=== PATIENT | female | born 1970 | race Caucasian/White ===

== ENCOUNTER 2017-04-13 08:19 | Emergency (ER) | payer OTHER ==
[~2017-04-13 08:19] MED LIST: HYDROCHLOROTHIA25 MG PO; PROVENTIL HFA IN; QVAR40 MCG IN
--- NOTE | 2017-04-13 09:33 | DIAGNOSTIC IMAGING REPORT ---
PROCEDURE: XR CHEST 2 VIEW INDICATION: SHORTNESS OF BREATH TECHNIQUE: PA and lateral views. COMPARISON: Chest 09/01/2015 FINDINGS: Lungs are clear. Heart and mediastinum are normal. Thorax is normal. IMPRESSION: 1. Negative chest.
--- NOTE | 2017-04-13 11:34 | ED ORDER SUMMARY ---
..... Patient: ASIA FUENTES OrderSheet Formerly [facility] VisitID: [id number] [place] [address] 46y, F Registration Date/Time: 04/13/2017 ORDER SHEET Weight: 79.3 kg (stated) Allergies: Aspirin, Codeine GENERAL ORDERS: Chest 2V Urgent (08:04/13/2017 PHutchinson DO) (Ack 8:54 OHernandez) (10:15 Sangita R.N.) Wildlife [employer] Research Ecologist (Continuous) (08:04/13/2017 PHutchinson DO) (8:40 Sangita R.N.) UA-Culture if indicated Urgent (:04/13/2017 PHutchinson DO) (Ack 8:53 OHernandez) (9:12 Sangita R.N.) Cardiac Panel Stat (:04/13/2017 PHutchinson DO) (Ack 8:53 OHernandez) (9:12 Sangita R.N.) BNP Urgent (08:04/13/2017 PHutchinson DO) (Ack 8:53 OHernandez) (9:12 Sangita R.N.) D-Dimer Urgent (08:04/13/2017 PHutchinson DO) (Ack 8:53 OHernandez) (9:12 Sangita R.N.) Amylase Urgent (08:04/13/2017 PHutchinson DO) (Ack 8:53 OHernandez) (9:12 Sangita R.N.) TSH Urgent (08:04/13/2017 PHutchinson DO) (Ack 8:53 OHernandez) (9:12 Sangita R.N.) Ethyl Alcohol Urgent (08:04/13/2017 PHutchinson DO) (Ack 8:54 OHernandez) (9:12 Sangita R.N.) Pulse oximeter (08:04/13/2017 PHutchinson DO) (8:40 Sangita R.N.) EKG - ER Stat (08:04/13/2017 PHutchinson DO) (8:41 Sangita R.N.) Vitals (08:04/13/2017 [facility]) (8:41 Sangita R.N.) MEDICATION ORDERS: IV FLUIDS: IV NS : initial bolus 1000 mL (1000 mL/hr), then 250 mL/hr for X4 (NOW) (08:40 04/13/2017 [facility]) (Ack 8:41 Sangita R.N.) (9:12 Sangita R.N.) Ativan IV 1 mg (HIGH ALERT MEDICATION, NOW) (08:04/13/2017 [facility]) (Ack 8:41 Sangita R.N.) (9:12 Sangita R.N.) ORDER SHEET NOTES: [Electronically signed by Rose Marie Haas R.N. (12:25 04/13/2017)] [Electronically signed by Jacqueline Caraballo MD (04:41 04/15/2017)] [Electronically locked/signed by Rose Marie Haas R.N. (12:04/13/2017)]
--- NOTE | 2017-04-13 11:34 | ED CLINICAL REPORT ---
Clinical Report - Physicians/Mid Levels [facility] [address] [place] [address] 04/13/2017 8:19 Patient: ASIA FUENTES Time Seen: 08:35. Arrived- By private vehicle. Historian- patient. HISTORY OF PRESENT ILLNESS Chief Complaint: NUMBNESS and DIZZINESS Anxiety. BLOOD PRESSURE CHECK and ELEVATED. At its maximum, severity described as severe. When seen in the E.D., severity described as severe. Modifying factors- worsened by walking. Relieved by rest. This started today and is still present. It was gradual in onset and has been waxing/waning. No loss of appetite, weight loss, headache, visual disturbance or fatigue. No muscle aches or weakness. Denies sleep problem. No decreased urine output. Similar symptoms previously: None. Recent medical care: Not recently seen/assessed. REVIEW OF SYSTEMS No fever, sore throat, sinus drainage, nasal congestion or cough. No chest pain, abdominal pain, nausea, vomiting or diarrhea. No black stools, bloody stools, chills, difficulty with urination or abnormal bleeding. No skin rash, back pain, calf pain, headache or blackouts. No double vision. The patient has had difficulty breathing ("a little bit of shortness of breath" yesterday while hiking). No difficulty with ambulation. All systems otherwise negative, except as recorded above. PAST HISTORY Primary physician (Alexys). Hypertension. Asthma. Thyroid disease. Endometriosis. Environmental allergies. Surgeries: Appendectomy. Had hysterectomy. Medications: Zyrtec. Glycine Oral. OTC energy/metabolism. Thyroid Hormone. HCTZ. Allergies: Aspirin.(hives) Codeine.(itching). SOCIAL HISTORY Former smoker. Regular alcohol use; consumes liquor daily. History of drug use: marijuana. ADDITIONAL NOTES The nursing notes have been reviewed. PHYSICAL EXAM Vital Signs: 04/13/2017 08:29 Temp: 98 F. 04/13/2017 08:22 BP: 179/109. HR: 108. RR: 15. O2 saturation: 100%. Pain level now: 0/10. Appearance: Alert. Anxious. Patient in moderate distress. (hyperventilating, crying on my exam). Distress appears due to anxiety. Eyes: Eyes normal inspection. No scleral icterus or pale conjunctivae. ENT: Pharynx normal. No pharyngeal erythema or tonsillar exudate. The mucous membranes are not dry. Neck: Normal inspection. Neck supple. No meningeal signs, JVD or carotid bruit. CVS: Tachycardia. Heart sounds normal. Pulses normal. Respiratory: No respiratory distress. Breath sounds normal. No rales, rhonchi or wheezes. Abdomen: No visible injury. Soft and nontender. Back: Normal inspection. Skin: Skin warm and dry. Normal skin color. No rash. Normal skin turgor. Extremities: Extremities exhibit normal ROM. No calf tenderness. No lower extremity edema. Neuro: Oriented X 3. No motor deficit. Sensory deficit present. (bilateral hands). Altered sensation to light touch. LABS, X-RAYS, AND EKG EKG: EKG time: (08:39). Regular narrow-complex tachycardia (ventricular rate 105). Sinus tachycardia. Normal ALIZE. Normal QRS complex. Normal axis. Non-specific ST segment / T wave abnormalities. EKG unchanged when compared with prior EKG. (similar to [id number]). The study has been interpreted contemporaneously by me. The EKG appears to be a good tracing. Rhythm Strip #1: Sinus tachycardia. Regular rhythm. Narrow QRS complexes. No ectopy. Chest X-ray: No acute disease. Normal lung markings present. Normal heart size. Mediastinum normal. Great vessels normal. No infiltrate. Views: PA and lateral. Technique: good. The X-rays were interpreted contemporaneously by me. Laboratory Tests: UA-Culture if indicated: (DAYANA: 04/13/2017 08:55) ( MsgRcvd 04/13/2017 09:20) Final results Test Result Flag Units (Reference) URINE COLOR YELLOW URINE APPEARANCE CLEAR URINE GLUCOSE NEGATIVE (NEGATIVE) URINE BILIRUBIN NEGATIVE (NEGATIVE) URINE KETONE TRACE (NEGATIVE) URINE SPECIFIC GRAVITY 1.015 (1.010-1.030) URINE PH 5.5 (5.0-8.0) URINE PROTEIN NEGATIVE (NEGATIVE) URINE UROBILINOGEN 0.2 EU/dL (0.2-1.0) URINE NITRITE NEGATIVE (NEGATIVE) URINE BLOOD TRACE-INTACT (NEGATIVE) URINE LEUK ESTERASE NEGATIVE (NEGATIVE) URINE RBC 0-1 rbc/hpf (0-1) URINE WBC 1-3 wbc/hpf (0-1) URINE EPITHELIAL CELLS 10-15 EPI/hpf (0-5) URINE BACTERIA FEW (1+) (NONE SEEN) URINE COMMENT CULT NOT INDICATED URINE CULTURES ARE SET-UP BASED ON THE FOLLOWING CRITERIA:POSITIVE NITRITEPOSITIVE LEUKOCYTE ESTERASEGREATER THAN 10 WHITE BLOOD CELLSMODERATE (2+) OR GREATER BACTERIA CBC w Diff: (DAYANA: 04/13/2017 08:30) ( [facility] 04/13/2017 08:48) Final results Test Result Flag Units (Reference) WHITE BLOOD COUNT 7.5 K/uL (4.5-11.5) RED BLOOD COUNT 5.10 M/uL (4.00-5.20) HEMOGLOBIN 16.3 H gm/dL (12.0-16.0) HEMATOCRIT 48.1 H % (36.0-46.0) MEAN CELL VOLUME 94 fL (80-100) MEAN CORPUSCULAR HGB 32 pg (26-34) MEAN CORPUSCULAR HGB CONC 34 g/dL (31-37) RED CELL DISTRIBUTION WIDTH 12.1 % (11.6-14.8) PLATELET COUNT 165 K/uL (150-400) LYMPH % 43.6 H % (25-40) MONO % 8.5 % (3-14) GRANULOCYTE % 47.9 L % (53-90) [id number]: (DAYANA: 04/13/2017 08:30) ( [facility] 04/13/2017 09:07) Final results Test Result Flag Units (Reference) D-DIMER QUANTITATIVE < 0.27 L ug/mLFEU (0.27-0.52) The primary value of this quantitative assay relates toits negative predictive value (i.e. exclusion) of pulmonaryembolism/deep vein thrombosis/DIC.Elevated levels of d-dimer may also occur with:, age, cancer, inflammation, liver disease,post-op, infection, hematoma, coronary disease, peripheralarteriopathy, bleeding disorders and thrombolytic treatment.Results should be correlated with other clinical andradiological data.Testing Methodology: Latex Immunoassay BNP: (DAYANA: 04/13/2017 08:30) ( MsgRcvd 04/13/2017 09:10) Final results Test Result Flag Units (Reference) B-TYPE NATRIURETIC PEPTIDE 10.8 pg/ml (5-100) CHEM 13 PANEL: (DAYANA: 04/13/2017 08:30) ( MsgRcvd 04/13/2017 09:20) Final results Test Result Flag Units (Reference) GLUCOSE 129 H mg/dL (70-110) BUN 17 mg/dL (7-18) CREATININE 1.0 mg/dL (0.6-1.3) Estimated GFR >60 mL/min Estimated GFR- >60 mL/min Note: Persistent reduction over 3 months in eGFR<60 mL/min/1.73 m2 defines CKD. Patients with eGFR values>=60 mL/min/1.73 m2 may also have CKD if evidence ofpersistent proteinuria. Additional information may be foundat [email or web address]. SODIUM 140 mmol/L (136-145) POTASSIUM 2.9 *L mmol/L (3.5-5.1) CRITICAL RESULTS [facility]EDCalled to [facility] 04/13/17 0919Were 2 patient identifiers used? YWas the result read back? Y CHLORIDE 101 mmol/L (98-107) CARBON DIOXIDE 22 mmol/L (21-32) CALCIUM 9.3 mg/dL (8.5-10.1) TOTAL PROTEIN 7.9 g/dL (6.4-8.2) ALBUMIN 4.3 g/dL (3.3-5.0) BILIRUBIN, TOTAL 0.8 mg/dL (0.0-1.0) ALKALINE PHOSPHATASE 86 U/L (46-116) AST (SGOT) 65 H U/L (15-37) ALT (SGPT) 124 H U/L (12-78) MAGNESIUM 2.1 mg/dL (1.8-2.4) AMYLASE 32 U/L (25-115) CPK 242 U/L (24-260) TROPONIN I <0.05 L ng/mL (0.00-1.5) TROPONIN REFERENCE RANGE:<0.1 NEGATIVE0.1-1.5 INDETERMINANT>1.5 POSITIVE ETHYL ALCOHOL < 3.0 L mg/dL (3-10) THYROID STIMULATING HORMONE 3.939 H uIU/mL (0.34-3.74) . Pulse Oximetry: 04/13/2017 08:22 O2 saturation: 100%. (FIO2 - room air). Interpretation: normal. PROGRESS AND PROCEDURES Course of Care: Ativan 1mg IVP given. Ilya note: patient was signed out to me at change of shift pending remainder of work- up and symptomatic relief. Patient's workup was unremarkable. On reevaluation, patient was found to be feeling much much better, and I did advise her that no emergent condition had been identified. Patient, mother and father counseled in person regarding the patient's condition, test results, diagnosis and need for follow-up. Concerns were addressed. Old ED records reviewed. Disposition: Discharged. Condition: stable and improved. CLINICAL IMPRESSION Paresthesia Anxiety reaction with hyperventilation. Essential hypertension. INSTRUCTIONS Warnings: GENERAL WARNINGS: Return or contact your physician immediately if your condition worsens or changes unexpectedly, if not improving as expected, or if other problems arise. Your Current Medications: CONTINUE TAKING THE FOLLOWING MEDICATIONS: Glycine Oral. HCTZ*. OTC energy/metabolism*. Thyroid Hormone*. Zyrtec*. Understanding of the discharge instructions verbalized by patient and family. Follow-up with: Debbie Amado PA-C, [facility], , [facility], [address] [place], [place] [phone] Follow up. Call for the next available appointment. Reason for referral: Follow up ER visit for high blood pressure and anxiety. (Electronically signed by Jacqueline Caraballo MD 04/15/2017 4:41)
--- NOTE | 2017-04-13 11:34 | ED CLINICAL REPORT ---
Clinical Report - Physicians/Mid Levels [facility] [address] [place] [place] [address] 04/13/2017 8:19 Patient: ASIA FUENTES Time Seen: 08:35. Arrived- By private vehicle. Historian- patient. HISTORY OF PRESENT ILLNESS Chief Complaint: NUMBNESS and DIZZINESS Anxiety. BLOOD PRESSURE CHECK and ELEVATED. At its maximum, severity described as severe. When seen in the E.D., severity described as severe. Modifying factors- worsened by walking. Relieved by rest. This started today and is still present. It was gradual in onset and has been waxing/waning. No loss of appetite, weight loss, headache, visual disturbance or fatigue. No muscle aches or weakness. Denies sleep problem. No decreased urine output. Similar symptoms previously: None. Recent medical care: Not recently seen/assessed. REVIEW OF SYSTEMS No fever, sore throat, sinus drainage, nasal congestion or cough. No chest pain, abdominal pain, nausea, vomiting or diarrhea. No black stools, bloody stools, chills, difficulty with urination or abnormal bleeding. No skin rash, back pain, calf pain, headache or blackouts. No double vision. The patient has had difficulty breathing ("a little bit of shortness of breath" yesterday while hiking). No difficulty with ambulation. All systems otherwise negative, except as recorded above. PAST HISTORY Primary physician (Alexys). Hypertension. Asthma. Thyroid disease. Endometriosis. Environmental allergies. Surgeries: Appendectomy. Had hysterectomy. Medications: Zyrtec. Glycine Oral. OTC energy/metabolism. Thyroid Hormone. HCTZ. Allergies: Aspirin.(hives) Codeine.(itching). SOCIAL HISTORY Former smoker. Regular alcohol use; consumes liquor daily. History of drug use: marijuana. ADDITIONAL NOTES The nursing notes have been reviewed. PHYSICAL EXAM Vital Signs: 04/13/2017 08:29 Temp: 98 F. 04/13/2017 08:22 BP: 179/109. HR: 108. RR: 15. O2 saturation: 100%. Pain level now: 0/10. Appearance: Alert. Anxious. Patient in moderate distress. (hyperventilating, crying on my exam). Distress appears due to anxiety. Eyes: Eyes normal inspection. No scleral icterus or pale conjunctivae. ENT: Pharynx normal. No pharyngeal erythema or tonsillar exudate. The mucous membranes are not dry. Neck: Normal inspection. Neck supple. No meningeal signs, JVD or carotid bruit. CVS: Tachycardia. Heart sounds normal. Pulses normal. Respiratory: No respiratory distress. Breath sounds normal. No rales, rhonchi or wheezes. Abdomen: No visible injury. Soft and nontender. Back: Normal inspection. Skin: Skin warm and dry. Normal skin color. No rash. Normal skin turgor. Extremities: Extremities exhibit normal ROM. No calf tenderness. No lower extremity edema. Neuro: Oriented X 3. No motor deficit. Sensory deficit present. (bilateral hands). Altered sensation to light touch. LABS, X-RAYS, AND EKG EKG: EKG time: (08:39). Regular narrow-complex tachycardia (ventricular rate 105). Sinus tachycardia. Normal ALIZE. Normal QRS complex. Normal axis. Non-specific ST segment / T wave abnormalities. EKG unchanged when compared with prior EKG. (similar to [id number]). The study has been interpreted contemporaneously by me. The EKG appears to be a good tracing. Rhythm Strip #1: Sinus tachycardia. Regular rhythm. Narrow QRS complexes. No ectopy. Chest X-ray: No acute disease. Normal lung markings present. Normal heart size. Mediastinum normal. Great vessels normal. No infiltrate. Views: PA and lateral. Technique: good. The X-rays were interpreted contemporaneously by me. Laboratory Tests: UA-Culture if indicated: (DAYANA: 04/13/2017 08:55) ( MsgRcvd 04/13/2017 09:20) Final results Test Result Flag Units (Reference) URINE COLOR YELLOW URINE APPEARANCE CLEAR URINE GLUCOSE NEGATIVE (NEGATIVE) URINE BILIRUBIN NEGATIVE (NEGATIVE) URINE KETONE TRACE (NEGATIVE) URINE SPECIFIC GRAVITY 1.015 (1.010-1.030) URINE PH 5.5 (5.0-8.0) URINE PROTEIN NEGATIVE (NEGATIVE) URINE UROBILINOGEN 0.2 EU/dL (0.2-1.0) URINE NITRITE NEGATIVE (NEGATIVE) URINE BLOOD TRACE-INTACT (NEGATIVE) URINE LEUK ESTERASE NEGATIVE (NEGATIVE) URINE RBC 0-1 rbc/hpf (0-1) URINE WBC 1-3 wbc/hpf (0-1) URINE EPITHELIAL CELLS 10-15 EPI/hpf (0-5) URINE BACTERIA FEW (1+) (NONE SEEN) URINE COMMENT CULT NOT INDICATED URINE CULTURES ARE SET-UP BASED ON THE FOLLOWING CRITERIA:POSITIVE NITRITEPOSITIVE LEUKOCYTE ESTERASEGREATER THAN 10 WHITE BLOOD CELLSMODERATE (2+) OR GREATER BACTERIA CBC w Diff: (DAYANA: 04/13/2017 08:30) ( [facility] 04/13/2017 08:48) Final results Test Result Flag Units (Reference) WHITE BLOOD COUNT 7.5 K/uL (4.5-11.5) RED BLOOD COUNT 5.10 M/uL (4.00-5.20) HEMOGLOBIN 16.3 H gm/dL (12.0-16.0) HEMATOCRIT 48.1 H % (36.0-46.0) MEAN CELL VOLUME 94 fL (80-100) MEAN CORPUSCULAR HGB 32 pg (26-34) MEAN CORPUSCULAR HGB CONC 34 g/dL (31-37) RED CELL DISTRIBUTION WIDTH 12.1 % (11.6-14.8) PLATELET COUNT 165 K/uL (150-400) LYMPH % 43.6 H % (25-40) MONO % 8.5 % (3-14) GRANULOCYTE % 47.9 L % (53-90) [id number]: (DAYANA: 04/13/2017 08:30) ( [facility] 04/13/2017 09:07) Final results Test Result Flag Units (Reference) D-DIMER QUANTITATIVE < 0.27 L ug/mLFEU (0.27-0.52) The primary value of this quantitative assay relates toits negative predictive value (i.e. exclusion) of pulmonaryembolism/deep vein thrombosis/DIC.Elevated levels of d-dimer may also occur with:, age, cancer, inflammation, liver disease,post-op, infection, hematoma, coronary disease, peripheralarteriopathy, bleeding disorders and thrombolytic treatment.Results should be correlated with other clinical andradiological data.Testing Methodology: Latex Immunoassay BNP: (DAYANA: 04/13/2017 08:30) ( MsgRcvd 04/13/2017 09:10) Final results Test Result Flag Units (Reference) B-TYPE NATRIURETIC PEPTIDE 10.8 pg/ml (5-100) CHEM 13 PANEL: (DAYANA: 04/13/2017 08:30) ( MsgRcvd 04/13/2017 09:20) Final results Test Result Flag Units (Reference) GLUCOSE 129 H mg/dL (70-110) BUN 17 mg/dL (7-18) CREATININE 1.0 mg/dL (0.6-1.3) Estimated GFR >60 mL/min Estimated GFR- >60 mL/min Note: Persistent reduction over 3 months in eGFR<60 mL/min/1.73 m2 defines CKD. Patients with eGFR values>=60 mL/min/1.73 m2 may also have CKD if evidence ofpersistent proteinuria. Additional information may be foundat [email or web address]. SODIUM 140 mmol/L (136-145) POTASSIUM 2.9 *L mmol/L (3.5-5.1) CRITICAL RESULTS CALLEDCalled to [facility] 04/13/17 0919Were 2 patient identifiers used? YWas the result read back? Y CHLORIDE 101 mmol/L (98-107) CARBON DIOXIDE 22 mmol/L (21-32) CALCIUM 9.3 mg/dL (8.5-10.1) TOTAL PROTEIN 7.9 g/dL (6.4-8.2) ALBUMIN 4.3 g/dL (3.3-5.0) BILIRUBIN, TOTAL 0.8 mg/dL (0.0-1.0) ALKALINE PHOSPHATASE 86 U/L (46-116) AST (SGOT) 65 H U/L (15-37) ALT (SGPT) 124 H U/L (12-78) MAGNESIUM 2.1 mg/dL (1.8-2.4) AMYLASE 32 U/L (25-115) CPK 242 U/L (24-260) TROPONIN I <0.05 L ng/mL (0.00-1.5) TROPONIN REFERENCE RANGE:<0.1 NEGATIVE0.1-1.5 INDETERMINANT>1.5 POSITIVE ETHYL ALCOHOL < 3.0 L mg/dL (3-10) THYROID STIMULATING HORMONE 3.939 H uIU/mL (0.34-3.74) . Pulse Oximetry: 04/13/2017 08:22 O2 saturation: 100%. (FIO2 - room air). Interpretation: normal. PROGRESS AND PROCEDURES Course of Care: Ativan 1mg IVP given. Ilya note: patient was signed out to me at change of shift pending remainder of work- up and symptomatic relief. Patient's workup was unremarkable. On reevaluation, patient was found to be feeling much much better, and I did advise her that no emergent condition had been identified. Patient, mother and father counseled in person regarding the patient's condition, test results, diagnosis and need for follow-up. Concerns were addressed. Old ED records reviewed. Disposition: Discharged. Condition: stable and improved. CLINICAL IMPRESSION Paresthesia Anxiety reaction with hyperventilation. Essential hypertension. INSTRUCTIONS Warnings: GENERAL WARNINGS: Return or contact your physician immediately if your condition worsens or changes unexpectedly, if not improving as expected, or if other problems arise. Your Current Medications: CONTINUE TAKING THE FOLLOWING MEDICATIONS: Glycine Oral. HCTZ*. OTC energy/metabolism*. Thyroid Hormone*. Zyrtec*. Understanding of the discharge instructions verbalized by patient and family. Follow-up with: Debbie Amado PA-C, [facility], , [facility], [address] [place], [place] [phone] Follow up. Call for the next available appointment. Reason for referral: Follow up ER visit for high blood pressure and anxiety. (Electronically signed by Jacqueline Caraballo MD 04/15/2017 4:41)
--- NOTE | 2017-04-13 11:34 | ED NURSING NOTES ---
Clinical Report - Nurses [facility] [address] [place] [address] 04/13/2017 8:19 [facility]: [id number] TRI[facility] Triage time 08:22. Acuity: LEVEL 3. Chief Complaint: BLOOD PRESSURE CHECK ("lightheaded). Alert. ASHWIN COMA SCORE: Ashwin Coma Scale: 15- eyes open spontaneously (4); best verbal response- oriented x 4 (5); best motor response- obeys commands (6). --08:29 Rose Marie Haas R.N. 08:22 04/13/17. BP: 179/109. HR: 108. RR: 15. O2 saturation: 100%. Pain level now: 0/10. --08:29 Rose Marie Haas R.N. 08:29 04/13/17. Temp: 98 F. --08:30 Rose Marie Haas R.N. Weight: 79.3 kg stated. Height/Length: 66 inches Per Patient. BMI: 28.2. --08:26 Rose Marie Haas R.N. Medications HCTZ. --08:23 Rose Marie Haas R.N. Thyroid Hormone. --08:23 Rose Marie Haas R.N. OTC energy/metabolism. --08:23 Rose Marie Haas R.N. Glycine Oral. --08:24 Rose Marie Haas R.N. Zyrtec. --08:24 Rose Marie Haas R.N. Medication/allergy information source: the patient. --08:29 Rose Marie Haas R.N. Allergies Aspirin.(hives) Codeine.(itching) --08:24 Rose Marie Haas R.N. History Arrived by private vehicle. Historian: patient. Unaccompanied. Primary physician (Alexys). This started today. SOCIAL HX: Former smoker. Regular alcohol use; consumes liquor daily. History of drug use: marijuana. FALL RISK ASSESSMENT: Fall risk assessment completed. No fall risk identified. FUNCTIONAL ASSESSMENT: Functional assessment: no impairments noted. LEARNING NEEDS ASSESSMENT: The learning needs assessment revealed no barriers. --08:29 Rose Marie Haas R.N. ( "a little bit of shortness of breath" yesterday while hiking). --08:30 Rose Marie Haas R.N. PROBLEMS: Thyroid Disease. Asthma. --08:26 Rose Marie Haas R.N. ADDITIONAL SURGERIES: Appendectomy. Hysterectomy. --08:26 Rose Marie Haas R.N. Assessment GENERAL / NEURO / PSYCH: The patient is awake and alert, is oriented and cooperative and appears anxious. She has poor eye contact. RESPIRATORY: Respirations not labored. CVS: Cardiac rhythm: sinus tachycardia. SKIN: Skin is warm and dry. --08:29 Rose Marie Haas R.N. Interventions ID and allergy band on patient. To treatment room. --08:29 Rose Marie Haas R.N. PHYSICAL ASSESSMENT 08:31 04/13/17. To room via wheelchair. Patient gowned. GENERAL / NEURO / PSYCH: The patient is awake and alert, is oriented and cooperative and appears anxious. She has poor eye contact. RESPIRATORY: Respirations not labored. CVS: Cardiac rhythm: sinus tachycardia. SKIN: Skin is warm and dry. --08:31 Rose Marie Haas R.N. NURSING PROGRESS NOTES 08:32 04/13/2017 Site #1 started via IV in the right antecubital space with an 20g angiocath, with aseptic technique and good blood return; one attempt. Blood drawn: rainbow set. Labeled in the presence of the patient and sent to the lab. Saline lock flushed with 10 mL saline (by Talon CHANDLER). --08:32 Rose Marie Haas R.N. 08:32 04/13/17. cardiac monitor technician, pulse oximeter and NIBP monitor placed on patient. Patient gowned. Head of bed elevated. Reassurance given. Call light placed in reach. Side rails up x 1. Bed placed in lowest position. Brakes of bed on. --08:32 Rose Marie Haas R.N. EKG time: (0839). EKG was ordered, performed by a tenzin and shown to the ED physician. --08:42 Uriel Aguayo, Tech1 08:30 04/13/17. BP: 152/102. --08:53 Rose Marie Haas R.N. 09:02 04/13/2017 Started bag #1 1000 mL IV Fluids IV NS (Saline); at 1000 mL/hr over 1 hour(s) via site #1 via IV pump. --09:12 Rose Marie Haas R.N. 09:02 04/13/2017 Ativan (LORazepam) IVP 1 mg given over 2 minute(s) via site #1. Allergies verified, confirmed 5 rights and sedative warning given to the patient. IV patency established. IV site checked: no pain, redness, or swelling. IV flushed thoroughly pre- and post-medication administration. IVP given by RN. --09:12 Rose Marie Haas R.N. 09:16 04/13/17. BP: 160/85. HR: 96. RR: 15. O2 saturation: 95%. Pain level now: 0/10. --09:17 Rose Marie Haas R.N. 09:17 04/13/17. Cardiac rhythm: sinus rhythm. Reassessment after fluids administered, procedure and medication administered. Overall patient status is improved- she states feels better. RESPIRATORY: No respiratory distress. SKIN: Skin is warm but not dry. --09:17 Rose Marie Haas R.N. 09:20 04/13/17. Critical value relayed to ED by lab. Critical value received by RN. K: 2.9. ED physician notifed of critical value. --09:20 Rose Marie Haas R.N. 10:00 04/13/17. BP: 147/86. HR: 87. RR: 19. O2 saturation: 96%. --10:05 Rose Marie Haas R.N. 10:05 04/13/17. Cardiac rhythm: sinus rhythm. The patient is resting quietly. Overall patient status is improved- she states feels better. RESPIRATORY: No respiratory distress. SKIN: Skin is warm and dry. --10:05 Rose Marie Haas R.N. 10:10 04/13/2017 IV Fluids IV NS Bag Change: bag #1 infused. Total amount infused: 1000. STARTED bag #2 (1000 mL) at 250 mL/hr via IV pump. --10:15 Rose Marie Haas R.N. 12:00 04/13/2017 IV Fluids IV NS Discontinued: bag #2 STOPPED upon discharge. Total amount infused: 750 mL. --12:13 Rose Marie Haas R.N. 11:00. Cardiac rhythm: sinus rhythm. Reassessment after fluids administered, procedure and medication administered. She is calm and resting quietly. Overall patient status is improved- she states feels better. RESPIRATORY: No respiratory distress. SKIN: Skin is warm and dry. --12:14 Rose Marie Haas R.N. 12:00. The patient is calm and resting quietly. Overall patient status is improved- she states feels better (hands no longer numb, verbalizes feeling better). RESPIRATORY: No respiratory distress. SKIN: Skin is warm and dry. --12:15 Rose Marie Haas R.N. 12:00 04/13/17. BP: 149/83. HR: 82. RR: 17. O2 saturation: 99% on room air. Pain level now: 0/10. --12:23 Rose Marie Haas R.N. DISPOSITION / DISCHARGE 12:00 04/13/2017 Site #1 removed upon discharge. Catheter intact. Bandaid applied. --12:10 Rose Marie Haas R.N. Departure time: 1200. Condition at departure: improved and stable. No learning barriers present. Discharge instructions provided and reviewed with the patient. Patient verbalized understanding. Written instructions provided in Greenlandic. The patient was discharged home and accompanied by family. She left the Emergency Department ambulatory and via private vehicle. FALL RISK ASSESSMENT: Fall risk assessment completed. No fall risk identified. --12:11 Rose Marie Haas R.N. 12:06 04/13/17. BP: 149/75. HR: 88. RR: 18. O2 saturation: 100% on room air. Pain level now: 0/10. --12:11 Rose Marie Haas R.N. Locked/Released at 04/13/2017 12:25 by Rose Marie Haas R.N.
--- NOTE | 2017-04-13 11:34 | ED ORDER SUMMARY ---
..... Patient: ASIA FUENTES OrderSheet [facility] VisitID: [id number] [place] [address] 46y, F Registration Date/Time: 04/13/2017 ORDER SHEET Weight: 79.3 kg (stated) Allergies: Aspirin, Codeine GENERAL ORDERS: Chest 2V Urgent (08:04/13/2017 PHutchinson DO) (Ack 8:54 OHernandez) (10:15 Sangita R.N.) Regulator Mechanic (Continuous) (08:04/13/2017 PHutchinson DO) (8:40 Sangita R.N.) UA-Culture if indicated Urgent (:04/13/2017 PHutchinson DO) (Ack 8:53 OHernandez) (9:12 Sangita R.N.) Cardiac Panel Stat (:04/13/2017 PHutchinson DO) (Ack 8:53 OHernandez) (9:12 Sangita R.N.) BNP Urgent (08:04/13/2017 PHutchinson DO) (Ack 8:53 OHernandez) (9:12 Sangita R.N.) D-Dimer Urgent (08:04/13/2017 PHutchinson DO) (Ack 8:53 OHernandez) (9:12 Sangita R.N.) Amylase Urgent (08:04/13/2017 PHutchinson DO) (Ack 8:53 OHernandez) (9:12 Sangita R.N.) TSH Urgent (08:04/13/2017 PHutchinson DO) (Ack 8:53 OHernandez) (9:12 Sangita R.N.) Ethyl Alcohol Urgent (08:04/13/2017 PHutchinson DO) (Ack 8:54 OHernandez) (9:12 Sangita R.N.) Pulse oximeter (08:04/13/2017 PHutchinson DO) (8:40 Sangita R.N.) EKG - ER Stat (08:04/13/2017 PHutchinson DO) (8:41 Sangita R.N.) Vitals (08:04/13/2017 [facility]) (8:41 Sangita R.N.) MEDICATION ORDERS: IV FLUIDS: IV NS : initial bolus 1000 mL (1000 mL/hr), then 250 mL/hr for X4 (NOW) (08:40 04/13/2017 [facility]) (Ack 8:41 Sangita R.N.) (9:12 Sangita R.N.) Ativan IV 1 mg (HIGH ALERT MEDICATION, NOW) (08:04/13/2017 [facility]) (Ack 8:41 Sangita R.N.) (9:12 Sangita R.N.) ORDER SHEET NOTES: [Electronically signed by oRse Marie Haas R.N. (12:25 04/13/2017)] [Electronically signed by Jacqueline Caraballo MD (04:41 04/15/2017)] [Electronically locked/signed by Rose Marie Haas R.N. (12:04/13/2017)]
--- NOTE | 2017-04-15 04:41 | ED MED RECONCILIATION SUMMARY ---
Patient: ASIA FUENTES Medication Reconciliation Report [facility] VisitID: [id number] [address] [place] [address] 46y, F Registration Date/Time: 04/13/2017 Weight: 79.3 kg Height/Length: 66 in. BMI: 28.2 ALLERGIES: Aspirin, Codeine The patient's Home Medications are listed below: CONTINUE TAKING THE FOLLOWING MEDICATIONS: Glycine Oral HCTZ OTC energy/metabolism Thyroid Hormone Zyrtec The source(s) of the original Home Medication information: patient The following Medications were given to the patient in the Emergency Department: IV NS IV Fluids bolus 0, then 1000 mL/hr, administered: 04/13/2017 9:02:00 AM Ativan [IVP] IVP 1 mg, administered: 04/13/2017 9:02:00 AM The following Medications were prescribed to the patient: None.
--- NOTE | 2017-04-15 04:41 | ED DISCHARGE INSTRUCTIONS ---
Patient: ASIA FUENTES General Instructions [facility] VisitID: [id number] [place] [address] 46y, F Registration Date/Time: 04/13/2017 Paresthesia Anxiety reaction with hyperventilation. Essential hypertension. INSTRUCTIONS Warnings: GENERAL WARNINGS: Return or contact your physician immediately if your condition worsens or changes unexpectedly, if not improving as expected, or if other problems arise. Your Current Medications: CONTINUE TAKING THE FOLLOWING MEDICATIONS: Glycine Oral. HCTZ*. OTC energy/metabolism*. Thyroid Hormone*. Zyrtec*. Understanding of the discharge instructions verbalized by patient and family. Follow-up with: Debbie Amado PA-C, [facility], , [facility], [address] [place] [address] [address] Follow up. Call for the next available appointment. Reason for referral: Follow up ER visit for high blood pressure and anxiety. ADDITIONAL INFORMATION Stress Reaction Anxiety is the feeling we all get when we think something bad might happen. It is a normal response to stress and usually causes only a mild reaction. When anxiety becomes more severe, emotions may interfere with daily life. In some cases, you may not even be aware of what it is youre anxious about! During an anxiety reaction, you may feel like you are helpless, nervous, depressed or irritable. Your body may show signs of anxiety in many ways. You may experience dry mouth, shakiness, dizziness, weakness, trouble breathing, chest pressure, headache, nausea, diarrhea, tiredness, inability to sleep or sexual problems. Home Care: 1) Try to locate the sources of stress in your life. They may not be obvious! These may include: -- Daily hassles of life which pile up (traffic jams, missed appointments, car troubles, etc.) -- Major life changes, both good (new baby, job promotion) and bad (loss of job, loss of loved one) -- Overload: feeling that you have too many responsibilities and can't take care of all of them at once -- Feeling helpless, feeling that your problems are beyond what youre able to solve 2) Notice how your body reacts to stress. Learn to listen to your body signals. This will help you take action before the stress becomes severe. 3) When you can, do something about the source of your stress. (Avoid hassles, limit the amount of change that happens in your life at one time and take a break when you feel overloaded). 4) Unfortunately, many stressful situations cannot be avoided. It is necessary to learn HOW TO MANAGE STRESS better. There are many proven methods that will reduce your anxiety. These include simple things like exercise, good nutrition and adequate rest. Also, there are certain techniques that are helpful: relaxation and breathing exercises, visualization, biofeedback and meditation. For more information about this, consult your doctor or go to a local bookstore and review the many books and tapes available on this subject. Follow Up If you feel that your anxiety is not responding to self-help measures, contact your doctor or make an appointment with a counselor. Get Prompt Medical Attention if any of the following occur: -- Your symptoms get worse -- Chest pain or trouble breathing -- Severe headache not relieved by rest and mild pain reliever -- Rapid or irregular heartbeat, fainting Paraesthesias Paraesthesia refers to a burning or prickling sensation that is sometimes felt in the hands, arms, legs or feet. It can also occur in other parts of the body. It can also feel like tingling or numbness, skin crawling or itching.The sensation is usually painless. Most people have experienced pins and needles. This feeling happens when legs have been crossed for too long and pressure is placed on a nerve. This is a temporary paraesthesia. It quickly goes away once the pressure is relieved. There are many possible causes for chronic paraesthesias. These include such disorders as stroke, herniated disk (pressing on a nerve), trapped nerve in the shoulder, elbow or wrist (such as carpal tunnel syndrome), vitamin deficiencies or even certain medicines. Laboratory tests are needed to make an accurate diagnosis. These tests may include blood tests, X-ray, CT (computerized tomography) scan or a muscle test (electromyography).Depending on the cause, treatment may include physical therapy. Home Care: Do not make any changes to your medicines without advice from your doctor. If vitamins have been prescribed, remember to take them daily at the recommended dose. Because of a decrease in feeling, a numb hand or foot may be more prone to injury. Take care to protect these areas from cuts, bumps, bruises, tavares or other injury. Keep your nails trimmed and wash your hands and feet often. Wear shoes that fit well to avoid pressure points, blisters and ulcers. Look at your hands and feet carefully (including the soles of your feet and between your toes) at least once a week and notify your doctor of any open wounds or signs of infection. Follow Up with your doctor or as advised by our staff. You may need further testing to determine the exact cause of your paraesthesia. [NOTE: If blood tests, X-ray, CT scan or electromyography were done, specialists will review them. You will be notified of any new findings that may affect your care.] Get Prompt Medical Attention if any of the following occur: Numbness or weakness of the face, one arm or one leg Slurred speech, confusion, trouble speaking, walking or seeing Severe headache, fainting spell, dizziness or seizure Chest, arm, neck or upper back pain Loss of bladder or bowel control Open wound with redness, swelling or pus High Blood Pressure --Established High Blood Pressure (Hypertension) is a chronic disease. The cause is unknown in most cases. It can usually be controlled with lifestyle changes and/or medicines. Symptoms of high blood pressure may include headache, dizziness, visual changes, chest pain and shortness of breath. Sometimes it causes no symptoms at all. However, even if there are no symptoms, untreated high blood pressure increases the risk of heart attack, also known as acute myocardial infarction, or AMI, and stroke. It is a serious health risk and should not be ignored. A normal blood pressure is 120/80 or less. The first (top) number is the "systolic" pressure. The second (bottom) number is the "diastolic" pressure. Hypertension exists when either the top number is 140 or higher, OR the bottom number is 90 or higher on repeated measurements. Home Care: All patients with high blood pressure should do the following to lower their pressure. If you are on medicines, then these methods may reduce or eliminate your need for medicines in the future. Begin a weight loss program if you are overweight. Reduce your salt intake. Avoid high salt foods (olives, pickles, smoked meats, salted potato chips, etc.). Do not add salt to your food at the table. Use only small amounts of salt when cooking. Begin an exercise program. Discuss with your doctor what type of exercise program would be best for you. It doesn't have to be difficult. Even brisk walking for 20 minutes three times a week is a good form of exercise. Avoid medicines which contain heart stimulants. This includes many cold and sinus decongestant pills and sprays as well as diet pills. Check the warnings about hypertension on the label. Stimulants such as amphetamine or cocaine could be lethal for someone with hypertension. Never take these. Limit your caffeine intake or switch to caffeine-free products. Stop smoking. If you are a long-time smoker, this can be hard. Enroll in a stop-smoking program to improve your chance of success. Learning how to handle stress better is an important part of any program to lower blood pressure. Learn about relaxation methods such as meditation, yoga or biofeedback. If medicines were prescribed, take them exactly as directed. Missing doses may cause your blood pressure get out of control. Consider buying an automatic blood pressure machine (available at most pharmacies). Use this to monitor your blood pressure at home and report the results to your doctor. Follow Up: Regular visits to your own physician for blood pressure checks and medicine adjustment is an important part of your care. Make a follow-up appointment as directed by our staff. Get Prompt Medical Attention if any of the following occur: Chest pain or shortness of breath Severe headache Throbbing or rushing sound in the ears Nosebleed Sudden severe abdominal pain Extreme drowsiness, confusion or fainting Dizziness or vertigo (dizziness with spinning sensation) Weakness of an arm or leg or one side of the face Difficulty with speech or vision You have been given the following additional information: Anxiety Reaction Paraesthesias Hypertension, Established (Electronically signed by Jacqueline Caraballo MD 04/15/2017 4:41)
--- NOTE | 2017-04-15 04:41 | ED MAR SUMMARY ---
..... Medication Administration Record [facility] [address] [place] [address] Patient: ASIA FUENTES Visit ID: [id number] 46y, F Weight: 79.3 kg Height/Length: 66 in BMI: 28.2 ALLERGIES: Aspirin, Codeine Start 09:02 04/13/2017 Rose Marie Haas R.N., Stop 12:00 04/13/2017 Rose Marie Haas R.N. Medication Administered: IV NS (SALINE), Dose: IV Fluids over 1 hour(s), Rate: 1000 mL/hr, Dispensed: 1000 mL bag, Site: #1 right AC. Medication Ordered: IV NS : initial bolus 1000 mL (1000 mL/hr), then 250 mL/hr for X4 (NOW). Given 09:02 04/13/2017 Rose Marie Haas R.N. Medication Administered: ATIVAN [IVP] (LORAZEPAM), Dose: 1 mg IVP over 2 minute(s), Site: #1 right AC. Medication Ordered: Ativan IV 1 mg (HIGH ALERT MEDICATION, NOW).
--- NOTE | 2017-04-15 04:41 | ED MED RECONCILIATION SUMMARY ---
Patient: ASIA FUENTES Medication Reconciliation Report [facility] VisitID: [id number] [address] [place] [address] 46y, F Registration Date/Time: 04/13/2017 Weight: 79.3 kg Height/Length: 66 in. BMI: 28.2 ALLERGIES: Aspirin, Codeine The patient's Home Medications are listed below: CONTINUE TAKING THE FOLLOWING MEDICATIONS: Glycine Oral HCTZ OTC energy/metabolism Thyroid Hormone Zyrtec The source(s) of the original Home Medication information: patient The following Medications were given to the patient in the Emergency Department: IV NS IV Fluids bolus 0, then 1000 mL/hr, administered: 04/13/2017 9:02:00 AM Ativan [IVP] IVP 1 mg, administered: 04/13/2017 9:02:00 AM The following Medications were prescribed to the patient: None.
--- NOTE | 2017-04-15 04:41 | ED MAR SUMMARY ---
..... Medication Administration Record [facility] [address] [place] [address] Patient: ASIA FUENTES Visit ID: [id number] 46y, F Weight: 79.3 kg Height/Length: 66 in BMI: 28.2 ALLERGIES: Aspirin, Codeine Start 09:02 04/13/2017 Rose Marie Haas R.N., Stop 12:00 04/13/2017 Rose Marie Haas R.N. Medication Administered: IV NS (SALINE), Dose: IV Fluids over 1 hour(s), Rate: 1000 mL/hr, Dispensed: 1000 mL bag, Site: #1 right AC. Medication Ordered: IV NS : initial bolus 1000 mL (1000 mL/hr), then 250 mL/hr for X4 (NOW). Given 09:02 04/13/2017 Rose Marie Haas R.N. Medication Administered: ATIVAN [IVP] (LORAZEPAM), Dose: 1 mg IVP over 2 minute(s), Site: #1 right AC. Medication Ordered: Ativan IV 1 mg (HIGH ALERT MEDICATION, NOW).
== END 2017-04-13 12:00 | disposition home or self-care (01) ==
LOC: ED SRH 08:19
DX: R20.2 Paresthesia of skin (principal); F41.1 Generalized anxiety disorder; R06.4 Hyperventilation; I10 Essential (primary) hypertension; Z79.899 Other long term (current) drug therapy; Z88.6 Allergy status to analgesic agent; Z88.5 Allergy status to narcotic agent; Z87.891 Personal history of nicotine dependence
CPT/HCPCS: 90004; 90100; 90616; 91320; 91556; 92010; 92530; 92610; 92720; 93140; 95059